=== PATIENT | female | born 1975 | race Caucasian/White ===

== ENCOUNTER 2019-11-09 19:38 | Emergency (ER) | payer OTHER ==
[~2019-11-09] VITALS: Ht 157.5 cm; Wt 61.4 kg
[2019-11-09 19:43] VITALS: BP 123/78; Ht 157.5 cm; Wt 61.4 kg
[2019-11-09] MEDS ORDERED: COZAAR25 MG (19:44)
== END 2019-11-09 20:12 | disposition home or self-care (01) ==
LOC: D.ER 19:38
DX: S99.921A Unspecified injury of right foot, initial encounter (principal); I10 Essential (primary) hypertension; W01.0XXA Fall on same level from slipping, tripping and stumbling without subsequent striking against object, initial encounter; Y93.9 Activity, unspecified; Y92.9 Unspecified place or not applicable